=== PATIENT | female | born 1970 | race Caucasian/White ===

== ENCOUNTER 2024-01-22 23:42 | Emergency (ER) | payer OTHER ==
[~2024-01-22] VITALS: Ht 165.1 cm; Wt 99.8 kg
[2024-01-22 23:42] VITALS: BP 180/96; PULSE 78; RESP 17; TEMP 97.8; O2SAT 98
[2024-01-22 23:54] VITALS: BP 180/96; PULSE 78; RESP 17; TEMP 97.8; O2SAT 96
[2024-01-23] MEDS: NACL 0.9% 1,000 ML IV ONE (00:31)
[2024-01-23] MEDS: ONDANSETRON 4 MG/2 ML VIAL IVP ONE (00:32)
[2024-01-23 00:38] LABS: BASOPHILS # (AUTO) 0.1 K/uL (0.00-0.22); BASOPHILS % (AUTO) 0.7 % (0.0-2.0); EOSINOPHILS # (AUTO) 0.3 K/uL (0-0.4); EOSINOPHILS % (AUTO) 2.2 % (0.0-4.0); HEMATOCRIT 40.9 % (36-48); HEMOGLOBIN 13.6 g/dL (12.0-16.0); LYMPHOCYTES # (AUTO) 3.1 K/uL (2.5-16.5); LYMPHOCYTES % (AUTO) 21.2 % (20.5-51.1); MEAN CORPUSCULAR HEMOGLOBIN 27 pg (27-31); MEAN CORPUSCULAR HGB CONC 33 g/dL (33-37); MEAN CORPUSCULAR VOLUME 82.3 fL (80-94); MONOCYTES # (AUTO) 0.9 K/uL (0.8-1.0); NEUTROPHILS # (AUTO) 10.2 K/uL (1.8-7.7); NEUTROPHILS % (AUTO) 69.9 % (42.2-75.2); PLATELET COUNT (AUTO) 301 K/uL (140-450); RED BLOOD CELL COUNT(AUTO) 4.97 MIL/uL (4.20-5.40); RED CELL DISTRIBUTION WIDTH 14.7 % (11.6-13.7); WHITE BLOOD COUNT (AUTO) 14.6 K/uL (4.8-10.8)
[2024-01-23 00:52] LABS: ANION GAP 11.6 (8-16); CALCIUM 8.6 mg/dL (8.5-10.1); POTASSIUM 3.6 mmol/L (3.5-5.1)
[2024-01-23 01:09] LABS: ALANINE AMINOTRANSFERASE 27 U/L (12-78); ALBUMIN 3.6 g/dL (3.4-5.0); ALKALINE PHOSPHATASE 111 U/L (50-136); ASPARTATE AMINOTRANSFERASE 21 U/L (15-37); BILIRUBIN,DIRECT 0.1 mg/dL (0.0-0.3); LIPASE 23 U/L (16-77); TOTAL BILIRUBIN 0.2 mg/dL (0.0-1.0); TOTAL PROTEIN, SERUM 7.7 g/dL (6.4-8.2)
[2024-01-23] MEDS: METOCLOPRAMIDE 10 MG/2 ML INJ VIAL IVP ONE (02:14)
[2024-01-23 02:52] VITALS: O2SAT 96
[2024-01-23] MEDS ORDERED: ONDA-188 SL (03:11)
[2024-01-23 04:55] VITALS: O2SAT 96
== END 2024-01-23 06:02 | disposition home or self-care (01) ==
LOC: MED 23:42
DX: R11.2 Nausea with vomiting, unspecified (principal); Z79.899 Other long term (current) drug therapy
CPT/HCPCS: 36415; 71045; 80048; 80076; 83690; 84484; 85025; 93005; 96361; 96374; 96375; 99285; J2405; J2765; J7030